=== PATIENT | male | born 1980 | race African-American/Black ===

== ENCOUNTER 2016-12-20 08:10 | Emergency (ER) | payer SELFPAY ==
[~2016-12-20] VITALS: Ht 170.2 cm; Wt 69.0 kg
[~2016-12-20 08:10] MED LIST: NEUR300C PO; ZOVI800T13 PO
[2016-12-20 08:13] VITALS: BP 120/69; PULSE 69; TEMP 99.1; O2SAT 99
[2016-12-20] MEDS ORDERED: SODIUM CHLOR 0.9% 1000 ML INJ 1,000 ML IV SCH (08:23)
[2016-12-20 08:24] VITALS: BP 120/69; PULSE 68; TEMP 99.1; O2SAT 97
--- NOTE | 2016-12-20 08:29 | PD ---
HPI Chief Complaint: Abdominal Pain Time Seen by Provider: 08:22 Travel History International Travel<30 days: No Contact w/Intl Traveler<30days: No Traveled to known affect area: No History of Present Illness HPI Patient is a 36-year-old male who presents to emergency room with complaints of abdominal pain with nausea vomiting diarrhea. Patient reports that all symptoms began last night around 9 PM. He reports that he had Caesar salad at dinner last night, reports that he came home and had 2 kenyan fries, reports that after that he began to feel nauseous and felt sick. Patient reports that he vomited multiple times last night and has had multiple episodes of diarrhea. Reports diffuse abdominal pain as well as back pain. Reports that he has never had symptoms like this in the past. Denies dysuria, urinary urgency or frequency. Patient denies any sick contacts at home as well as at work. No recent travels or trips. Patient with no fevers or chills. 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) Social History Alcohol Use: Yes (OCCASIONALLY) Tobacco Use: Yes (1 PPD) Substance Use: Yes Allergies-Medications (Allergen,Severity, Reaction): Coded Allergies: No Known Allergies (Verified , 12/20/16) Reported Meds & Prescriptions Reported Meds & Active Scripts Active Review of Systems General / Constitutional: No: Fever Eyes: No: Visual changes HENT: No: Headaches Cardiovascular: No: Chest Pain or Discomfort Respiratory: No: Shortness of Breath Gastrointestinal: Positive: Nausea, Vomiting, Diarrhea, Abdominal Pain Genitourinary: No: Dysuria Musculoskeletal: No: Pain Skin: No Rash Neurologic: No: Weakness Psychiatric: No: Depression Endocrine: No: Polydipsia Hematologic/Lymphatic: No: Easy Bruising Physical Exam Narrative GENERAL: Moderate distress SKIN: Warm and dry. HEAD: Atraumatic. Normocephalic. EYES: Pupils equal and round. No scleral icterus. No injection or drainage. ENT: No nasal bleeding or discharge. Mucous membranes pink and moist. NECK: Trachea midline. No JVD. CARDIOVASCULAR: Regular rate and rhythm. No murmur appreciated. RESPIRATORY: No accessory muscle use. Clear to auscultation. Breath sounds equal bilaterally. GASTROINTESTINAL: Diffuse abdominal tenderness with guarding on exam, positive hyperactive bowel sounds. MUSCULOSKELETAL: No obvious deformities. No clubbing. No cyanosis. No edema. NEUROLOGICAL: Awake and alert. No obvious cranial nerve deficits. Motor grossly within normal limits. Normal speech. PSYCHIATRIC: Appropriate mood and affect; insight and judgment normal. Data Data Last Documented VS Vital Signs Date Time Temp Pulse Resp B/P Pulse Ox O2 Delivery O2 Flow Rate FiO2 12/20/16 08:24 99.1 68 120/69 97 Room Air Orders Complete Blood Count With Diff (12/20/16 08:23) Comprehensive Metabolic Panel (12/20/16 08:23) Lipase (12/20/16 08:23) Prothrombin Time / Inr (Pt) (12/20/16 08:23) Act Partial Throm Time (Ptt) (12/20/16 08:23) Urinalysis - C+S If Indicated (12/20/16 08:23) Ct Abd/Pel W Iv Contrast(Rout) (12/20/16 08:23) Iv Access Insert/Monitor (12/20/16 08:23) Morphine Inj (Morphine Inj) (12/20/16 08:30) Ondansetron Inj (Zofran Inj) (12/20/16 08:30) Sodium Chlor 0.9% 1000 Ml Inj (Ns 1000 M (12/20/16 08:23) Sodium Chloride 0.9% Flush (Ns Flush) (12/20/16 08:30) Iohexol 350 Inj (Omnipaque 350 Inj) (12/20/16 10:06) Ketorolac Inj (Toradol Inj) (12/20/16 10:45) Dicyclomine (Bentyl) (12/20/16 10:45) Famotidine Inj (Pepcid Inj) (12/20/16 10:45) Labs Laboratory Tests Test 12/20/16 12/20/16 08:27 09:08 White Blood Count 13.4 TH/MM3 Red Blood Count 5.13 MIL/MM3 Hemoglobin 14.1 GM/DL Hematocrit 42.0 % Mean Corpuscular Volume 81.9 FL Mean Corpuscular Hemoglobin 27.5 PG Mean Corpuscular Hemoglobin 33.6 % Concent Red Cell Distribution Width 13.4 % Platelet Count 164 TH/MM3 Mean Platelet Volume 9.1 FL Neutrophils (%) (Auto) 91.9 % Lymphocytes (%) (Auto) 2.7 % Monocytes (%) (Auto) 5.1 % Eosinophils (%) (Auto) 0.1 % Basophils (%) (Auto) 0.2 % Neutrophils # (Auto) 12.3 TH/MM3 Lymphocytes # (Auto) 0.4 TH/MM3 Monocytes # (Auto) 0.7 TH/MM3 Eosinophils # (Auto) 0.0 TH/MM3 Basophils # (Auto) 0.0 TH/MM3 CBC Comment DIFF FINAL Differential Comment Prothrombin Time 11.3 SEC Prothromb Time International 1.0 RATIO Ratio Activated Partial 21.3 SEC Thromboplast Time Sodium Level 141 MEQ/L Potassium Level 5.1 MEQ/L Chloride Level 109 MEQ/L Carbon Dioxide Level 23.1 MEQ/L Anion Gap 9 MEQ/L Blood Urea Nitrogen 18 MG/DL Creatinine 1.07 MG/DL Estimat Glomerular Filtration 95 ML/MIN Rate Random Glucose 108 MG/DL Calcium Level 8.6 MG/DL Total Bilirubin 0.8 MG/DL Aspartate Amino Transf 42 U/L (AST/SGOT) Alanine Aminotransferase 45 U/L (ALT/SGPT) Alkaline Phosphatase 68 U/L Total Protein 7.5 GM/DL Albumin 3.7 GM/DL Lipase 20 U/L Urine Color YELLOW Urine Turbidity CLEAR Urine pH 6.5 Urine Specific [place] 1.034 Urine Protein 30 mg/dL Urine Glucose (UA) NEG mg/dL Urine Ketones 40 mg/dL Urine Occult Blood NEG Urine Nitrite NEG Urine Bilirubin NEG Urine Urobilinogen 2.0 MG/DL Urine Leukocyte Esterase NEG Urine RBC 3 /hpf Urine WBC 1 /hpf Urine Squamous Epithelial <1 /hpf Cells Urine Transitional Epithelial <1 /hpf Cells Urine Mucus FEW /lpf Microscopic Urinalysis Comment CULT NOT INDICATED MDM Medical Decision Making Medical Screen Exam Complete: Yes Emergency Medical Condition: Yes Interpretation(s) Vital Signs Date Time Temp Pulse Resp B/P Pulse Ox O2 Delivery O2 Flow Rate FiO2 12/20/16 08:13 99.1 69 120/69 99 Differential Diagnosis Gastritis, gastroenteritis, colitis, appendicitis, cholecystitis, GERD Narrative Course Patient is a 36-year-old male who presents to emergency room with complaints of nausea vomiting and diarrhea since 9 PM last night. Patient reports pain throughout his whole abdomen along with back pain since 9 PM. Patient with no recent travels or trips. Patient with no sick contacts. IV line established. Patient will be given IV fluids as well as IV antiemetics and IV pain medications. Labs ordered as well as CAT scan of abdomen and pelvis with IV contrast for further evaluation of symptoms. 0935: Patient reevaluated, patient reports that he is feeling much better at this time after antiemetics and pain medication administered. Patient currently pending labwork as well as CAT scan study. Patient reevaluated, abdomen is soft, nontender, nondistended, no peritoneal signs. Patient reports that he is feeling much better at this time. Patient with most likely gastroenteritis. Reviewed all labs and all studies with patient in detail including ALL incidental findings. Signs and symptoms of when to return to the emergency room was reviewed patient in detail. Patient will follow-up with his primary care doctor and return to emergency room as needed Diagnosis Primary Impression: Abdominal pain Qualified Code: R10.84 - Generalized abdominal pain Additional Impression: Nausea vomiting and diarrhea Patient Instructions: General Instructions, Narcotic given in the ED Departure Forms: Tests/Procedures, Work Release Enter return to work date: Dec 22, 2016 Additional Instructions: Please return to emergency room as needed Please drink plenty of fluids Please return to the emergency room if your symptoms worsen or progress Please follow-up with your primary care doctor Med/Other Pt SpecificInfo: Prescription(s) given Scripts Famotidine (Pepcid)40 Mg Tab40 Mg PO HS #30 TAB Ref 0 Prov:Kiarra Zhang DO 12/20/16 Ondansetron Odt (Zofran Odt)4 Mg Tab4 Mg SL Q6HR PRN (Nausea/Vomiting) #30 TAB Ref 0 Prov:Kiarra Zhang DO 12/20/16 Dicyclomine (Bentyl)20 Mg Tab20 Mg PO TID #20 TAB Ref 0 Prov:Kiarra Zhang DO 12/20/16 Disposition: 01 DISCHARGE HOME Condition: Stable Kiarra Zhang DO Dec 20, 2016 08:29
[2016-12-20] MEDS ORDERED: SODIUM CHLORIDE 0.9% FLUSH 5 ML FLUSH IVF PRN (08:30)
[2016-12-20] MEDS ORDERED: MORPHINE SULFATE 4 MG/ML INJ IV PUSH ONE (08:30)
[2016-12-20] MEDS ORDERED: ONDANSETRON HCL 4 MG/2 ML VIAL IVP ONE (08:30)
[2016-12-20 09:19] LABS: AUTOMATED NEUTROPHIL # 12.3 TH/MM3 (1.8-7.7); BASOPHIL % 0.2 % (0.0-2.0); EOSINOPHIL % 0.1 % (0.0-4.0); HEMO FLAGS DIFF FINAL; LYMPH % 2.7 % (9.0-44.0); LYMPHOCYTE # 0.4 TH/MM3 (1.0-4.8); MEAN CELL VOLUME 81.9 FL (80.0-100.0); MEAN CORPUSCULAR HEMOGLOBIN 27.5 PG (27.0-34.0); MEAN CORPUSCULAR HGB CONC 33.6 % (32.0-36.0); MONO % 5.1 % (0.0-8.0); NEUT % 91.9 % (16.0-70.0); PLATELET COUNT 164 TH/MM3 (150-450); RED BLOOD COUNT 5.13 MIL/MM3 (4.50-5.90); RED CELL DISTRIBUTION WIDTH 13.4 % (11.6-17.2); WHITE BLOOD COUNT 13.4 TH/MM3 (4.0-11.0)
[2016-12-20 09:31] LABS: PROTHROMBIN TIME - PATIENT 11.3 SEC (9.8-11.6)
[2016-12-20 09:38] LABS: APTT (PATIENT) 21.3 SEC (24.3-30.1)
[2016-12-20 09:41] LABS: ALKALINE PHOSPHATASE 68 U/L (45-117); ALT (GPT) 45 U/L (12-78); ANION GAP 9 MEQ/L (5-15); AST (GOT) 42 U/L (15-37); BICARBONATE 23.1 MEQ/L (21.0-32.0); BLOOD UREA NITROGEN 18 MG/DL (7-18); CHLORIDE 109 MEQ/L (98-107); GLOMERULAR FILTRATION RATE 95 ML/MIN (>89); SODIUM (NA) 141 MEQ/L (136-145); TOTAL BILIRUBIN ADULT 0.8 MG/DL (0.2-1.0)
[2016-12-20 09:42] LABS: POTASSIUM 5.1 MEQ/L (3.5-5.1)
[2016-12-20 09:52] LABS: BLOOD, URINE NEG (NEG); GLUCOSE,URINE NEG (NEG); KETONE, URINE 40 mg/dL (NEG); MUCUS URINE FEW /lpf (OCC); NITRITE,URINE NEG (NEG); PH, URINE 6.5 (5.0-8.5); SQUAMOUS EPITHELIAL CELL URINE <1 /hpf (0-5); TRANSITIONAL EPI CELLS, URINE <1 /hpf; URINE COLOR YELLOW (YELLW/STRAW)
[2016-12-20 09:56] LABS: COMMENT (UR) CULT NOT INDICATED; CULTURE IF INDICATED CULT NOT INDICATED
[2016-12-20] MEDS ORDERED: IOHEXOL 350 MG/ML 10 ML VIAL (for RAD DIAG) IV ONE (10:06)
--- NOTE | 2016-12-20 10:33 | RADRPT ---
EXAM DATE/TIME: 12/20/2016 10:03 [facility] COMPARISON: No previous studies available for comparison. INDICATIONS : Nausea, vomiting and diarrhea. IV CONTRAST: 92 cc Omnipaque 350 (iohexol) IV ORAL CONTRAST: Prescribed oral contrast ingested. RADIATION DOSE: 5.06 CTDIvol (mGy) MEDICAL HISTORY : None SURGICAL HISTORY : None. ENCOUNTER: Initial ACUITY: 1 day PAIN SCALE: 3/10 LOCATION: upper quadrant TECHNIQUE: Volumetric scanning of the abdomen and pelvis was performed. Using automated exposure control and ad justment of the mA and/or kV according to patient size, radiation dose was kept as low as reasonably achievable to obtain optimal diagnostic quality images. FINDINGS: LOWER LUNGS: The visualized lower lungs are clear. LIVER: Homogeneous density without lesion. There is no dilation of the biliary tree. No calcified gallston es. SPLEEN: Normal size without lesion. PANCREAS: Within normal limits. KIDNEYS: Normal in size and shape. There is no mass, stone or hydronephrosis. ADRENAL GLANDS: Within normal limits. VASCULAR: There is no aortic aneurysm. BOWEL/MESENTERY: The stomach, small bowel, and colon demonstrate no acute abnormality. There is no free intraperitone al air or fluid. Appendix appears normal. ABDOMINAL WALL: Within normal limits. RETROPERITONEUM: There is no lymphadenopathy. BLADDER: No wall thickening or mass. REPRODUCTIVE: Within normal limits. INGUINAL: There is no lymphadenopathy or hernia. MUSCULOSKELETAL: Within normal limits for patient age. CONCLUSION: No acute inflammatory process. Ranjith Pearl MD on December 20, 2016 at 10:30 Board Certified Radiologist. This report was verified electronically.
[2016-12-20] MEDS ORDERED: BENT20TA PO (10:41)
[2016-12-20] MEDS ORDERED: FAMO1TAB73 PO (10:41)
[2016-12-20] MEDS ORDERED: ZOFR4TAB3 SL (10:41)
[2016-12-20] MEDS ORDERED: DICYCLOMINE HCL 10 MG CAP PO ONE (10:45)
[2016-12-20] MEDS ORDERED: KETOROLAC TROMETHAMINE 30 MG/ML (IVP) VIAL IV PUSH ONE (10:45)
[2016-12-20] MEDS ORDERED: FAMOTIDINE 20 MG/2 ML VIAL IV PUSH ONE (10:45)
[2016-12-20 11:26] VITALS: BP 127/67
== END 2016-12-20 11:57 | disposition home or self-care (01) ==
LOC: NEPC 08:10
DX: R10.84 Generalized abdominal pain (principal); R19.7 Diarrhea, unspecified; R11.2 Nausea with vomiting, unspecified; F17.210 Nicotine dependence, cigarettes, uncomplicated
CPT/HCPCS: 74177; 80053; 81001; 83690; 85025; 85610; 85730; 96361; 96374; 96375; 99284; J1885; J2270; J2405; J7030; Q9967